=== PATIENT | female | born 1990 | race Caucasian/White ===

== ENCOUNTER 2017-12-15 15:43 | Emergency (ER) | payer BC ==
[~2017-12-15] VITALS: Ht 162.6 cm; Wt 87.1 kg
[2017-12-15 15:51] VITALS: Ht 162.6 cm; Wt 87.1 kg
[2017-12-15 16:55] LABS: PLATELET COUNT 305 x10^3mcL (130-400)
[2017-12-15 16:58] LABS: RED CELL DISTRIBUTION WIDTH 14.7 % (11.5-14.5)
[2017-12-15 17:01] LABS: CALCIUM 9.1 mg/dL (8.5-10.1); CARBON DIOXIDE 28.5 mmol/L (21-32); CHLORIDE SERUM 103 mmol/L (98-107); CREATININE SERUM 0.9 mg/dL (0.6-1.0); GFR1 > 60 mL/min; GLUCOSE SERUM 91 mg/dL (74-106); POTASSIUM SERUM 4.3 mmol/L (3.5-5.1); SODIUM SERUM 140 mmol/L (136-145)
[2017-12-15 17:05] LABS: ALBUMIN 4.4 g/dL (3.4-5.0); ALKALINE PHOSPHATASE 85 U/L (46-116); ALT/SGPT 22 U/L (14-59); AST/SGOT 13 U/L (15-37); BILIRUBIN TOTAL 0.3 mg/dL (0.20-1.00); LIPASE 173 IU/L (73-393); TOTAL PROTEIN, SERUM 8.3 g/dL (6.4-8.2)
[2017-12-15 17:53] VITALS: BP 120/76
== END 2017-12-15 17:53 | disposition home or self-care (01) ==
LOC: ED 15:43
PROVIDERS: Emergency Medicine
DX: R07.89 Other chest pain (principal); K21.9 Gastro-esophageal reflux disease without esophagitis
CPT/HCPCS: 36415